=== PATIENT | male | born 1990 | race Two or more races ===

== ENCOUNTER 2017-09-11 12:41 | Emergency (ER) | payer SELFPAY ==
[~2017-09-11] VITALS: Ht 190.5 cm; Wt 99.8 kg
[2017-09-11 12:55] VITALS: BP 122/77
[2017-09-11] MEDS ORDERED: IBUPROFEN 600 MG TABLET PO ONE ×2 (13:55→14:00)
== END 2017-09-11 15:15 | disposition home or self-care (01) ==
LOC: ER 12:45
DX: S16.1XXA Strain of muscle, fascia and tendon at neck level, initial encounter (principal); S63.611A Unspecified sprain of left index finger, initial encounter; S43.52XA Sprain of left acromioclavicular joint, initial encounter; M62.838 Other muscle spasm; R51 Headache; V49.49XA Driver injured in collision with other motor vehicles in traffic accident, initial encounter; Y93.89 Activity, other specified; Y92.413 State road as the place of occurrence of the external cause; Y99.8 Other external cause status
CPT/HCPCS: 29130; 73140; 99284; A4606; Z7610